=== PATIENT | male | born 1975 ===

== ENCOUNTER 2023-07-05 14:59 | Outpatient (AMB) | payer OTHER, SELFPAY ==
--- NOTE | 2023-07-05 15:06 | A.OFFPC_ITS ---
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 Patient was in [address] ED in school, and he is not sure how much of his brain is good. Not sure if he can remember thing s for this visit. Patient is requesting nicotine patches today. 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 Last office visit/CPE: Acute issue(s): Difficult historian L Leg cramps -Cramping at back of leg Knee pain Requesting nicotine patches Damaged discs L2/L3 PMHx: L2-L3 disc injury, Arthritis SocHx: Works at [employer]. Smokes about 1/3 to 1/2 ppd. Smokes MJ, 1 MJ lasts him 2-3 days. 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 1. Little interest or pleasure in doing things: not at all 2. Feeling down, depressed, or hopeless: several days 3. Trouble falling or staying asleep, or sleeping too much: not at all 4. Feeling tired or having little energy: several days 5. Poor appetite or overeating: not at all 6. Feeling bad about yourself - or that you are a failure or have let yourself or your family down: several days 7. Trouble concentrating on things, such as reading the newspaper or watching television: not at all 8. Moving or speaking so slowly that other people could have noticed. Or the opposite - being so fidgety or restless that you have been moving around a lot more than usual: not at all 9. Thoughts that you would be better off or of hurting yourself in some way: not at all Total score: 3 Source: Developed by Drs. Sam Montoya, Essie Thakkar, Nigel Huang and colleagues, with an educational sierra from [employer]. Thrive Questionnaire Date Thrive assessed: 07/05/23 I am a: Patient What is your living situation today?: I have a steady place to live Within the past 12 months, did the food you bought not last and you didn't have the money to get more?: Never true Within the past 12 months, did you worry whether your food would run out before you got money to buy more?: Never true Do you have trouble paying for medicines?: No Do you have trouble getting transportation to medical appointments?: No Do you have trouble paying your heating and electricity bill?: No Do you have trouble taking care of your child, family member or friend?: No Do you have trouble with day-to-day activities such as bathing, preparing meals, shopping, managing finances, etc.?: No Are you currently unemployed and looking for a job?: No Are you interested in more education?: No XAVIER-7 AMB Questionnaire XAVIER-7 Date XAVIER - 7 assessed: 07/05/23 Feeling nervous, anxious, or on edge: 0 = Not at all Not being able to stop or control worryin = Not at all Worrying too much about different things: 0 = Not at all Trouble relaxin = Not at all Being so restless that it is hard to sit still: 0 = Not at all Becoming easily annoyed or irritable: 0 = Not at all Feeling afraid as if something awful might happen: 0 = Not at all Total XAVIER-7 score (0-4 normal; 5-9 mild; 10-14 moderate; 15-21 severe): 0 Source: Developed by Drs. Sam Montoya, Essie Thakkar, Nigel Huang and colleagues, with an educational sierra from [employer]. Physical exam (Primary Care) Vital Signs: Last Vital Signs Pulse 104 H 07/05/23 15:07 BP 120/80 07/05/23 15:07 Pulse Ox 96 07/05/23 15:07 Oxygen Delivery Method Room Air 07/05/23 15:07 BMI result Body Mass Index 33.1 Tobacco/Smoking Status: Tobacco use Status Tobacco use date assessed 07/05/23 07/05/23 15:29 Patient Tobacco Use Status Current someday Tobacco 07/05/23 15:44 PHQ-9: PHQ-9 Score PHQ-9: Total score 3 07/05/23 16:09 Thrive Assessment: Date of Thrive Assessment Date Thrive assessed 07/05/23 07/05/23 15:29 Assessment and Plan Assessment & Plan (1) Cramps of left lower extremity: Code(s): R25.2 - Cramp and spasm Plan: Frequent?leg?cramps. Hydrate?well.??Trial?magnesium. If?not?improving?will?consider?physical?therapy (2) Smoker: Code(s): F17.200 - Nicotine dependence, unspecified, uncomplicated Plan: Smoking?1/3?to?1/2?pack?per?day.??Will?give?him?Nicoderm?patches?and?encouraged? him?to?wean?this?down?soon?as?well. (3) Back pain: Code(s): M54.9 - Dorsalgia, unspecified Plan: History?of?arthritis?and?patient?notes?disc?injuries?in?lumbar?spine. 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 Patient?mentions?meniscus?but?unclear?if?he?has?had?surgery?or?injury. Check?x-ray (5) Laboratory exam ordered as part of routine general medical examination: Code(s): Z00.00 - Encounter for general adult medical examination without abnormal findings Plan: Check?labs Orders: Orders XR knee RT 3V Today M25.561 - Pain in right knee, M25.562 - Pain in left knee XR lumbar spine 2-3V Today M54.9 - Dorsalgia, unspecified Medications: New nicotine (Nicoderm CQ) 1 patch transdermal Q24H 28 days 28 ea 1RF F17.200 - Nicotine dependence, unspecified, uncomplicated magnesium 200 mg PO DAILY 30 tabs 2RF 30 days Coding Level of Care Code New Pt Level 3 (58505) Diagnoses Cramps of left lower extremity R25.2 Smoker F17.200 Back pain M54.9 Right knee pain M25.561 Laboratory exam ordered as part of routine general medical examination Z00.00
[2023-07-05 15:07] VITALS: BP 120/80; PULSE 104; O2SAT 96; BMI 33.1
== END 2023-07-05 16:34 | disposition home or self-care (01) ==
PROVIDERS: PCP Family Medicine; Visit Provider Family Medicine
DX: R25.2 Cramp and spasm (principal); F17.200 Nicotine dependence, unspecified, uncomplicated; M54.9 Dorsalgia, unspecified; M25.561 Pain in right knee; Z00.00 Encounter for general adult medical examination without abnormal findings
CPT/HCPCS: 99203

== ENCOUNTER 2023-08-04 07:08 | Outpatient (REF) | payer OTHER, SELFPAY ==
[2023-08-04 11:31] LABS: MANUAL DIFF FLAG NO
[2023-08-04 11:33] LABS: Basophils Percent Auto 0.4 % (0-2); Eosinophils Absolute Auto 0.3 X10*3/uL (0.0-0.4); Eosinophils Percent Auto 2.5 % (0-4); Hematocrit 48.1 % (42.0-52.0); Hemoglobin 16.1 g/dl (14.0-18.0); Imm Gran Abs Auto 0.06 X10*3/uL (0.00-0.03); Imm Gran Pct Auto 0.5 % (0.0-0.4); Lymphocytes Percent Auto 35.3 % (20-40); Mean Corpuscular HGB Conc 33.5 g/dl (31.0-36.0); Mean Corpuscular Hemoglobin 31.9 pg (27.0-33.0); Mean Corpuscular Volume 95.4 fL (80.0-98.0); Mean Platelet Volume 10.9 fL (9.4-12.4); Monocytes Absolute Auto 0.8 X10*3/uL (0.1-1.2); Neutrophils Absolute Auto 6.1 x10*3/uL (2.0-8.3); Neutrophils Percent Auto 54.3 % (45-73); Platelet Count 322 X10*3/uL (160-400); Red Blood Count 5.04 X10*6/uL (4.60-5.80); White Blood Count 11.2 X10*3/uL (4.8-10.8)
[2023-08-04 12:15] LABS: Alanine Aminotransferase 28 U/L (0-40); Albumin Level 4.4 g/dL (3.5-5.0); Alkaline Phosphatase 62 U/L (39-117); Anion Gap 14 (12-20); Aspartate Amino Transferase 21 U/L (5-37); Bilirubin Total 0.9 mg/dL (0.0-1.0); Blood Urea Nitrogen 12 mg/dL (9-16); Calcium 9.5 mg/dL (8.4-10.2); Carbon Dioxide 26 mmol/L (22-29); Chloride 103 mmol/L (96-108); Cholesterol 183 mg/dL (<200); Estimated Glomerular Filt Rate > 60; Glucose Fasting 96 mg/dL (60-99); HDL Cholesterol 27 mg/dL (>40); LDL Cholesterol Calculated 106 mg/dL (<100); Potassium 3.6 mmol/L (3.3-5.1); Sodium 139 mmol/L (135-145); Total Protein 7.6 g/dL (6.5-8.0); Triglycerides 253 mg/dL (<150)
[2023-08-04 12:20] LABS: Prostate Specific Antigen Scr 0.87 ng/mL (<0.05-4.0)
== END 2023-08-04 07:09 | disposition home or self-care (01) ==
LOC: HO.WFDLDS 07:08
PROVIDERS: Visit Provider Family Medicine
DX: Z00.00 Encounter for general adult medical examination without abnormal findings (principal); Z12.5 Encounter for screening for malignant neoplasm of prostate
CPT/HCPCS: 36415; 80053; 80061; 84153; 85025

== ENCOUNTER 2023-08-11 10:30 | Outpatient (AMB) | payer OTHER, SELFPAY ==
[2023-08-11 10:33] VITALS: BP 126/74; PULSE 82; O2SAT 96; BMI 33.4
--- NOTE | 2023-08-11 10:33 | MHC.PC.OV ---
Vital Signs 08/11/23 10:33 Height 6 ft 1 in Weight 253 lb 2 oz BMI 33.4 BP 126/74 Blood Pressure Location Lt brachial Position Sitting Pulse 82 Pulse Source Pulse Oximeter Pulse Oximetry (%) 96 Oxygen Delivery Method Room Air Intake Visit Reasons: Extended exam with f/u labs and health maint. Intake Note: Patient is here for extended exam and follow up on labs, his left hand has gets rigid, cramps, has to wait a couple of minutes to go away, interfering with his work. Banana Ripening Room Supervisor Name: Nancy [email or web address] Allergies Penicillins Allergy (Mild, Verified 08/11/23 10:40) Unknown Tobacco use date assessed: 08/11/23 HPI Extended exam with f/u labs and health maint. HPI Details 48 y/o male presents for an extended exam with f/u labs and health maintenance. Labs were drawn 08/04/23. Reviewed labs with pt. Mildly elevated WBC. Triglycerides 253. TC 183. LDL 106. HDL low at 27. Pt has ongoing complaints of hand pain and LE cramps. [facility] Medical History (Updated 08/11/23 @ 11:30 by Castillo George) Hip pain Bilateral knee pain Family History (Updated 07/05/23 @ 15:36 by Meka Koroma CMA) Mother Alzheimer disease Father Diabetes Social History (Updated 07/05/23 @ 15:44 by Meka Koroma CMA) Household Members: Significant Other Housing: Apartment Alcohol intake: current Alcohol intake frequency: a few times a month Alcohol type: beer Patient Tobacco Use Status: Current someday Tobacco user Cigarettes Per Day: 4 e-Cigarette/Vaping Use: Currently Using service: No Current occupational status: employed 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 Sam Montoya, Essie Thakkar, Nigel Huang and colleagues, with an educational sierra from [employer]. Physical exam (Primary Care) Vital Signs: Last Vital Signs Pulse 82 08/11/23 10:33 BP 126/74 08/11/23 10:33 Pulse Ox 96 08/11/23 10:33 Oxygen Delivery Method Room Air 08/11/23 10:33 BMI result Body Mass Index 33.4 Tobacco/Smoking Status: Tobacco use Status Tobacco use date assessed 08/11/23 08/11/23 10:43 Patient Tobacco Use Status Current someday Tobacco 08/11/23 10:36 e-Cigarette/Vaping Use Currently Using 08/11/23 10:43 Thrive Assessment: Date of Thrive Assessment Date Thrive assessed 07/05/23 08/11/23 10:36 Assessment and Plan Assessment & Plan (1) Low HDL (under 40): Code(s): E78.6 - Lipoprotein deficiency Plan: Low?HDL?and?elevated?triglycerides. Encouraged?exercise?and?a?diet?low?in?saturated?fats?and?cholesterol Will?repeat?in?a?few?months. (2) Hypertriglyceridemia: Code(s): E78.1 - Pure hyperglyceridemia Plan: As?above (3) Cramps of left lower extremity: Code(s): R25.2 - Cramp and spasm Plan: Lower?extremity?and?knee?pain?and?cramping Electrolytes?negative Referred?for?physical?therapy (4) Bilateral knee pain: Code(s): M25.561 - Pain in right knee; M25.562 - Pain in left knee Plan: Bilateral?knee?pain?right?worse?than?left Referred?to?physical?therapy Will?also?give?him?a?script?for?naproxen?b.i.d. (5) Hand pain: Code(s): M79.643 - Pain in unspecified hand Plan: Referred?for?occupational?therapy. Naproxen?b.i.d. If?not?improving?will?refer?to?hand?surgery (6) Screening for prostate cancer: Code(s): Z12.5 - Encounter for screening for malignant neoplasm of prostate Plan: PSA?within?normal?limit (7) Knee pain: Code(s): M25.569 - Pain in unspecified knee Plan: Referred?for?physical?therapy (8) Adult general medical exam: Code(s): Z00.00 - Encounter for general adult medical examination without abnormal findings Plan: 48-year-old?male?presents?for?extended?exam Encouraged?healthy?diet?with?active?lifestyle?and?plenty?of?exercise Orders: Orders OT Evaluation and Treatment Today M79.643 - Pain in unspecified hand PT Evaluation and Treatment Today M25.569 - Pain in unspecified knee Medications: New naproxen 500 mg PO BID 60 tabs 2RF 30 days Coding Level of Care Code Est Pt Level 4 (59295) Diagnoses Low HDL (under 40) E78.6 Hypertriglyceridemia E78.1 Cramps of left lower extremity R25.2 Bilateral knee pain M25.561; M25.562 Hand pain M79.643 Screening for prostate cancer Z12.5 Knee pain M25.569 Adult general medical exam Z00.00
== END 2023-08-11 11:46 | disposition home or self-care (01) ==
PROVIDERS: PCP Family Medicine; Visit Provider Family Medicine
DX: E78.6 Lipoprotein deficiency (principal); E78.1 Pure hyperglyceridemia; R25.2 Cramp and spasm; M25.561 Pain in right knee; M25.562 Pain in left knee; M79.643 Pain in unspecified hand; Z12.5 Encounter for screening for malignant neoplasm of prostate; M25.569 Pain in unspecified knee; Z00.00 Encounter for general adult medical examination without abnormal findings
CPT/HCPCS: 99214

== ENCOUNTER 2023-08-29 14:26 | Outpatient (REF) | payer OTHER, SELFPAY ==
--- NOTE | ~2023-08-29 | XR_ITS ---
STUDY: Lumbar spine and right knee INDICATION: Dorsalgia and right knee pain COMPARISON: None TECHNIQUE: 4 view lumbar spine and 3 view right knee. FINDINGS: Lumbar spine: Mild levoscoliosis. 5 lumbar type vertebral bodies are identified with multilevel mild vertebral body height losses. Mild L5-S1 and moderate L2-L3 disc space narrowings. Pedicles and SI joints within normal limits. Hip joints appear maintained. Right hemipelvic phlebolith. Right knee: Mild medial knee joint narrowing. No fracture, dislocation or joint effusion. XR/XR knee RT 3V IMPRESSION: Mild scoliosis, multilevel mild vertebral body height losses, L2-L3 and L5-S1 disc narrowings. Right medial knee joint narrowing.
--- NOTE | ~2023-08-29 | XR_ITS ---
STUDY: Lumbar spine and right knee INDICATION: Dorsalgia and right knee pain COMPARISON: None TECHNIQUE: 4 view lumbar spine and 3 view right knee. FINDINGS: Lumbar spine: Mild levoscoliosis. 5 lumbar type vertebral bodies are identified with multilevel mild vertebral body height losses. Mild L5-S1 and moderate L2-L3 disc space narrowings. Pedicles and SI joints within normal limits. Hip joints appear maintained. Right hemipelvic phlebolith. Right knee: Mild medial knee joint narrowing. No fracture, dislocation or joint effusion. XR/XR lumbar spine 2-3V IMPRESSION: Mild scoliosis, multilevel mild vertebral body height losses, L2-L3 and L5-S1 disc narrowings. Right medial knee joint narrowing.
== END 2023-08-29 14:27 | disposition home or self-care (01) ==
LOC: HO.XRAY 14:26
PROVIDERS: PCP Family Medicine; Visit Provider Family Medicine
DX: M54.9 Dorsalgia, unspecified (principal); M25.561 Pain in right knee
CPT/HCPCS: 72100; 73562

== ENCOUNTER 2023-10-05 08:25 | Outpatient (AMB) | payer OTHER, SELFPAY ==
[2023-10-05 08:36] VITALS: BP 126/54; PULSE 83; RESP 13; O2SAT 97; BMI 32.2
--- NOTE | 2023-10-05 08:36 | MHC.PC.OV ---
Vital Signs 10/05/23 08:36 Height 6 ft 1 in Weight 244 lb 2 oz BMI 32.2 BP 126/54 L Blood Pressure Location Rt brachial Position Sitting Respiration 13 Pulse 83 Pulse Source Pulse Oximeter Pulse Oximetry (%) 97 Oxygen Delivery Method Room Air Intake Visit Reasons: f/u hypertriglyceridemia Intake Note: Patient is here to review labs. Patient is here with his friend, who is his surrogate (who assists him with all of the things he needs like health care, health insurance, etc.) Joy Dumont to help interpret with needs as he felt with the utility worker roller shop tablet at last visit he was unable to communicate well. Patient wanted to inform his provider that he has difficulty holding a job, was tested after being held back in the 6th grade in [place] until he was 18 and he has a very low IQ, cannot maintain friendships, acts like he is always on the go. The low IQ was diagnosed in [place] and patient has a paper regarding this however it is in Hungarian. Patient's surrogate will send via the portal for translation and review after todays visit. Patient would like to have a referral for an official diagnosis. Patient lastly reports he has low back pain, bilateral hands become frozen like he cannot move them, and R knee pain. Hide Paster Required: Yes Hide Paster Language: Biscuit Packer Name: Surrogate, Joy, in room Accompanied by: Friend Allergies Penicillins Allergy (Mild, Verified 08/11/23 10:40) Unknown Tobacco use date assessed: 08/11/23 HPI f/u hypertriglyceridemia HPI Details 48 y/o male presents to f/u lipids. Also f/u hand pain/knee pain. He had mentioned last office visit he will start physical therapy/occuptational therapy for these. No recent labs to review for his lipids. Knee and lumbar x-ray 08/29/23. Lumbar x-ray shows mild scoliosis, multilevel mild vertebral body height losses, L2-L3 and L5-S1 disc narrowings. R medial knee joint narrowing. Pt has not had a colonoscopy yet. 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 Sam Montoya, Essie Thakkar, Nigel Huang and colleagues, with an educational sierra from [employer]. Review of Systems Const Denies chills, Denies fatigue, Denies fever(s), Denies headache(s) and Denies weakness ENT Denies dizziness and Denies headache(s) Card Denies chest pain, Denies lightheadedness, Denies dyspnea and Denies other (Palpitations) Resp Denies cough, Denies dyspnea, Denies wheezing and Denies other ( shortness of breath) Musc Denies numbness and Denies tingling Neuro Denies dizziness, Denies headache(s), Denies numbness, Denies tingling, Denies paresthesias and Denies weakness Psych Denies anxiety and Denies depression Endo Denies fatigue Aller/Immun Denies wheezing Physical exam (Primary Care) Vital Signs: Last Vital Signs Pulse 83 10/05/23 08:36 Resp 13 10/05/23 08:36 BP 126/54 L 10/05/23 08:36 Pulse Ox 97 10/05/23 08:36 Oxygen Delivery Method Room Air 10/05/23 08:36 BMI result Body Mass Index 32.2 Tobacco/Smoking Status: Tobacco use Status Tobacco use date assessed 08/11/23 10/05/23 08:53 Patient Tobacco Use Status Current someday Tobacco 10/05/23 08:53 e-Cigarette/Vaping Use Currently Using 10/05/23 08:53 Thrive Assessment: Date of Thrive Assessment Date Thrive assessed 07/05/23 10/05/23 08:53 Const General: no acute distress and well developed Nutritional Appearance: well nourished Orientation/consciousness: patient oriented x3 HENMT Head: Yes normocephalic and Yes atraumatic Eyes General: appearance normal, both eyes and all related structures Pupils: Equal, round and reactive pupils present EOM: EOMs intact bilaterally Resp Effort & Inspection: normal respiratory effort Auscultation: clear to auscultation bilaterally Cardio Rate: regular rate Rhythm: regular rhythm Heart sounds: S1 normal heart sound present, S2 normal heart sound present, no gallops, no murmurs and no rubs Neuro General: patient oriented x3 and gait normal Cranial nerves: Yes Equal, round and reactive pupils present Psych Affect: normal affect Assessment and Plan Assessment & Plan (1) Hypertriglyceridemia: Code(s): E78.1 - Pure hyperglyceridemia Plan: Elevated?triglycerides?and?also?low?HDL Encouraged?weight?loss?and?exercise?and?I?have?referred?him?to?physical?therapy?as?patient?has?back?and?knee?pain. Recheck?lipid (2) Hand pain: Code(s): M79.643 - Pain in unspecified hand Plan: I?referred?him?to?Occupational?therapy (3) Bilateral knee pain: Code(s): M25.561 - Pain in right knee; M25.562 - Pain in left knee Plan: X-ray?of?knee?shows?narrowing?of?medial?compartment Advised?weight?loss Referred?for?physical?therapy May?need?additional?imaging?or?referral (4) Back pain: Code(s): M54.9 - Dorsalgia, unspecified Plan: X-ray?shows?some?disc?height?space?changes Advised?weight?loss Referred?for?physical?therapy Will?follow-up?at?next?appointment (5) Polyarthralgia: Code(s): M25.50 - Pain in unspecified joint Plan: Pain?in?multiple?joints Checking?inflammatory?markers (6) Screening for colon cancer: Code(s): Z12.11 - Encounter for screening for malignant neoplasm of colon Plan: Referred?to?Gastroenterology (7) Cognitive deficits: Code(s): R41.89 - Other symptoms and signs involving cognitive functions and awareness Plan: Patient?has?complaints?of?cognitive?deficits/low?IQ. This?does?not?appear?to?be?new?or?changing He?would?like?evaluation.??Referred?to?neuropsychiatry?for?testing Orders: Orders CRP High Sensitivity Today M25.50 - Pain in unspecified joint Rheumatoid Factor Today M25.50 - Pain in unspecified joint Lipid Panel Today E78.1 - Pure hyperglyceridemia, Z00.00 - Encounter for general adult medical examination without abnormal findings Comprehensive [place]. Panel Fast Today E78.1 - Pure hyperglyceridemia, Z00.00 - Encounter for general adult medical examination without abnormal findings Complete Blood Count Auto Diff Today E78.1 - Pure hyperglyceridemia, Z00.00 - Encounter for general adult medical examination without abnormal findings Erythrocyte Sedimentation Rate Today M25.50 - Pain in unspecified joint Referrals Neuropsychiatry Referral R41.89 - Other symptoms and signs involving cognitive functions and awareness Gastroenterology Referral Z12.11 - Encounter for screening for malignant neoplasm of colon Medications: Refilled nicotine (Nicoderm CQ) 1 patch transdermal Q24H 28 ea 2RF 28 days F17.200 - Nicotine dependence, unspecified, uncomplicated naproxen 500 mg PO BID 60 tabs 2RF 30 days M25.50 - Pain in unspecified joint Coding Level of Care Code Est Pt Level 4 (09863) Diagnoses Hypertriglyceridemia E78.1 Hand pain M79.643 Bilateral knee pain M25.561; M25.562 Back pain M54.9 Polyarthralgia M25.50 Screening for colon cancer Z12.11 Cognitive deficits R41.89
== END 2023-10-05 09:25 | disposition home or self-care (01) ==
PROVIDERS: PCP Family Medicine; Visit Provider Family Medicine
DX: E78.1 Pure hyperglyceridemia (principal); M79.643 Pain in unspecified hand; M25.561 Pain in right knee; M25.562 Pain in left knee; M54.9 Dorsalgia, unspecified; M25.50 Pain in unspecified joint; R41.89 Other symptoms and signs involving cognitive functions and awareness; F17.210 Nicotine dependence, cigarettes, uncomplicated
CPT/HCPCS: 99214

== ENCOUNTER 2023-11-27 07:52 | Outpatient (RCR) | payer OTHER, SELFPAY | END 2024-03-25 07:20 | disposition home or self-care (01) | LOC: HO.PTWFD 07:52 | PROVIDERS: PCP Family Medicine; Visit Provider Family Medicine | DX: M25.561 Pain in right knee (principal); M25.562 Pain in left knee | CPT/HCPCS: 97110; 97162; 97535 ==